=== PATIENT | female | born 1945 | race Caucasian/White ===

== ENCOUNTER 2020-06-26 14:24 | Inpatient (IN) | payer OTHER, SELFPAY ==
[~2020-06-26] VITALS: Ht 162.6 cm; Wt 65.8 kg
--- NOTE | 2020-06-26 14:25 | NUR ---
Placed in room 2 . Placed on gambling monitor, blood pressure machine and pulse oximeter. To gown for exam. Side rails up. Report given to
--- NOTE | 2020-06-26 14:30 | NUR ---
Pt bib daughter from home with c/o generalized weakness, body aches and cough since 06/16/20, pt tested positive for covid on 06/18/20. V/S stable, pt is afebrile.
[2020-06-26 14:43] VITALS: BP_SYST 113
[2020-06-26] MEDS ORDERED: DEXAMETHASONE SOD PHOSPHATE 10 MG/ML VIAL IVP ONE (14:45)
[2020-06-26] MEDS ORDERED: cefTRIAXone 1 GM in D5W 50 ML IV ONE (14:45)
[2020-06-26] MEDS ORDERED: MULT-1117 PO (15:14)
[2020-06-26] MEDS ORDERED: FER300L PO (15:14)
[2020-06-26] MEDS ORDERED: ALPR0.5T PO (15:14)
[2020-06-26] MEDS ORDERED: HYDR-4038 PO (15:14)
[2020-06-26] MEDS ORDERED: CEL250 PO (15:14)
[2020-06-26] MEDS ORDERED: INSU100V9 SQ (15:14)
[2020-06-26] MEDS ORDERED: LIP10 PO (15:14)
[2020-06-26] MEDS ORDERED: TACR1CAP2 PO (15:14)
[2020-06-26] MEDS ORDERED: ESZO2TAB22 PO (15:14)
[2020-06-26] MEDS ORDERED: MAGN400C PO (15:14)
[2020-06-26] MEDS ORDERED: PRO40 PO (15:14)
[2020-06-26] MEDS ORDERED: PRED5TAB PO (15:14)
[2020-06-26] MEDS ORDERED: METO50TA7 PO (15:14)
[2020-06-26] MEDS ORDERED: NEUTPHOSP PO (15:14)
[2020-06-26] MEDS ORDERED: DOCU-144 PO (15:14)
[2020-06-26] MEDS ORDERED: NOR10 PO (15:14)
--- NOTE | 2020-06-26 15:14 | NUR ---
Med rec completed.
--- NOTE | 2020-06-26 15:41 | NUR ---
# 22 gauge angiocath placed to R HAND. Use of asceptic technique. Opsite placed over site. Blood return noted. Flushed with 10 cc of normal saline. No evidence of infiltration noted. Patient tolerated well.
[2020-06-26] MEDS ORDERED: cefTRIAXone 1 GM VIAL ONE (15:51)
--- NOTE | 2020-06-26 16:00 | NUR ---
PT RESTING IN BED, NO S/SX OF DISTRESS AND V/S STABLE
[2020-06-26 18:15] LABS: BASOPHILS % (AUTO) 0.1 % (0.0-2.0); HEMATOCRIT 38.3 % (36-48); HEMOGLOBIN 12.7 g/dL (12.0-16.0); LYMPHOCYTES # (AUTO) 0.4 K/uL (1.0-5.5); LYMPHOCYTES % (AUTO) 8.6 % (20.5-51.5); MEAN CORPUSCULAR HEMOGLOBIN 26 pg (27-31); MEAN CORPUSCULAR HGB CONC 33 % (32-36); MEAN CORPUSCULAR VOLUME 77 fL (79.0-98.0); MONOCYTES # (AUTO) 0.2 K/uL (0.0-1.0); MONOCYTES % (AUTO) 5.4 % (1.7-9.3); NEUTROPHILS # (AUTO) 3.7 K/uL (1.8-7.7); NEUTROPHILS % (AUTO) 85.9 % (40.0-70.0); PLATELET COUNT (AUTO) 167 K/uL (130-430); RED BLOOD CELL COUNT(AUTO) 4.96 MIL/uL (4.2-6.2); WHITE BLOOD COUNT (AUTO) 4.3 K/uL (4.8-10.8)
[2020-06-26 18:27] LABS: ANION GAP 7 (5-15); CALCIUM 9.1 mg/dL (8.4-11.0); CHLORIDE 102 mmol/L (98-107); GLUCOSE 92 mg/dL (70-99); INR 1.2 (0.8-1.2); POTASSIUM 3.6 mmol/L (3.5-5.1); SODIUM SERUM 138 mmol/L (136-145); UREA NITROGEN, BLOOD 11 mg/dL (8-21)
[2020-06-26 18:30] LABS: C-REACTIVE PROTEIN QUANT 9.1 mg/dL (0-0.5)
[2020-06-26 18:42] LABS: ALANINE AMINOTRANSFERASE 44 U/L (12-78); ALBUMIN 2.7 g/dL (3.4-4.8); ASPARTATE AMINOTRANSFERASE 47 U/L (10-37); LACTATE DEHYDROGENASE 331 U/L (81-234); TOTAL BILIRUBIN 0.7 mg/dL (0.0-1.0)
--- NOTE | 2020-06-26 18:53 | NUR ---
PT UP TO BEDSIDE COMMODE, ABLE TO VOID. ACCIDENTLY RIPPED OUT IV AND CONTAMINATED URINE WITH BLOOD. BLEEDING CONTROLLED AND BANDAGED
[2020-06-26] MEDS ORDERED: NALOXONE HCL 0.4 MG/ML AMP (NARCAN) IVP PRN (19:15)
[2020-06-26] MEDS ORDERED: DOCUSATE SODIUM 100 MG CAPSULE PO PRN (19:15)
[2020-06-26] MEDS ORDERED: HYDROcodone/ACETAMIN 5-325 MG TAB (NORCO/ VICODIN) PO PRN (19:15)
--- NOTE | 2020-06-26 19:15 | NUR ---
Received report from DEA Quispe.
--- NOTE | 2020-06-26 19:40 | NUR ---
# 22 gauge angiocath placed to right forearm. Use of asceptic technique. Opsite placed over site. Blood return noted. Blood for lab drawn from site. Flushed with 10 cc of normal saline. No evidence of infiltration noted. Patient tolerated well.
[2020-06-26] MEDS ORDERED: AZITHROMYCIN 500 MG/VIAL (ZITHROMAX) IV ONE (19:50)
[2020-06-26] MEDS: DEXAMETHASONE SOD PHOSPHATE 10 MG/ML VIAL IVP SCH (20:04)
[2020-06-26] MEDS: AZITHROMYCIN 500 MG in NS 250 ML IV SCH (20:05)
--- NOTE | 2020-06-26 20:23 | NUR ---
Patient will be admitted to care of Dr. Ramos. Admitted to TELE unit. Will go to room 124B. Belongings list completed. Complete and up to date summary report printed. SBAR report to be given at bedside with opportunity for questions.
--- NOTE | 2020-06-26 20:31 | NUR ---
Call for a bed, cleaning process. Nurse will call back when room ready.
[2020-06-26] MEDS ORDERED: NAPH,MB-DB/K PH,MBDB 250 MG TAB ONE (20:47)
[2020-06-26] MEDS ORDERED: hydrALAZINE HCL 25 MG TABLET ONE (20:47)
[2020-06-26] MEDS ORDERED: METOPROLOL SUCCINATE 50 MG TAB.SR.24H (TOPROL XL) PO ONE (20:48)
[2020-06-26] MEDS ORDERED: ALPRAZolam 0.25 MG TABLET ONE (20:50)
[2020-06-26] MEDS: hydrALAZINE HCL 25 MG TABLET PO SCH (21:08)
[2020-06-26] MEDS: NAPH,MB-DB/K PH,MBDB 250 MG TAB PO SCH (21:09)
[2020-06-26] MEDS: mycophenolate mofetiL 250 MG CAPSULE PO SCH (21:09)
[2020-06-26] MEDS: ALPRAZolam 0.25 MG TABLET PO SCH (21:10)
[2020-06-26] MEDS: TACROLIMUS ANHYDROUS 1 MG CAPSULE (PROGRAF) PO SCH (21:10)
[2020-06-26] MEDS: METOPROLOL SUCCINATE 50 MG TAB.SR.24H (TOPROL XL) PO SCH (21:10)
[2020-06-26] MEDS: ENOXAPARIN SODIUM 40 MG/0.4 ML SYRINGE SUBCUT SCH (21:11)
[2020-06-26] MEDS ORDERED: INSULIN REGULAR, HUMAN 10 UNITS/0.1 ML INJ ONE (21:21)
--- NOTE | 2020-06-26 21:26 | NUR ---
BS 175- Insulin R 2 unit as order.
[2020-06-26 22:22] VITALS: BP_SYST 159
--- NOTE | 2020-06-26 22:22 | NUR ---
ADMISSION NOTE Received patient from ER via gurney. Patient admitted with diagnosis of COVID PNA. Patient is awake, alert, oriented X 4. Patient oriented to hospital room, call light, toileting, pain management and safety-teach back done. Patient informed that SUE will be HER nurse and that their room number is 124B. Personal belongings checked and Belongings List documented. Call light within reach.
--- NOTE | 2020-06-26 22:32 | NUR ---
Patient transfer to the floor by EMT.
--- NOTE | 2020-06-26 22:41 | NUR ---
ADMISSION NOTE Received patient from ER via gurney. Patient admitted with diagnosis of COVID PNA. Patient is awake, alert, oriented X 4. Patient oriented to hospital room, call light, toileting, pain management and safety-teach back done. Patient informed that SUE will be HER nurse and that their room number is 124B. Personal belongings checked and Belongings List documented. Call light within reach. Addendum: 06/26/20 at 4092 by Kwan Garcia RN NOTE TIME PLACED IN ERROR. ACTUAL TIME: @0351
--- NOTE | 2020-06-26 23:47 | NUR ---
CONSULT REASON FOR CONSULT: COVID PNEIMONIA PERSON I SPOKE WITH: NANCY CONSULTING PHYSICIAN: DR. HOLLY [facility] SOLUTION ARCHITECT PHONE NUMBER: [phone] ORDERING PHYSICIAN: DR. PABLO
--- NOTE | 2020-06-26 23:49 | NUR ---
CONSULT REASON FOR CONSULT: COVID PNEUMONIA DR. GREENE CAME AND SAW THE PATIENT. DOCTOR PUT IN CONSULTATION NOTES IN.
[2020-06-27] MEDS: INSULIN REGULAR, HUMAN 100 UNITS/ML, 10 ML VIAL (humuLIN R) SUBCUT PRN ×4 (06:44→21:55)
--- NOTE | 2020-06-27 06:45 | NUR ---
CLOSING NOTE PATIENT AWAKE IN BED, RESPIRATIONS EVEN AND UNLABORED ON OXYGEN 2LPM VIA NC. PATIENT BRP AND AMBULATES STEADILY. ACCUCHECK 207, 4 UNITS REGULAR INSULIN COVERAGE GIVEN. PATIENT TOLERATED. IV SITE PATENT AND INTACT TO RIGHT FOREARM 22GAUGE, FLUSHING WELL WITH NO SIGNS OF INFILTRATION NOTED. ISOLATION PRECAUTIONS IN PLACE. SAFETY MEASURES MAINTAINED. BED LOCKED IN LOW POSITION WITH CALL LIGHT IN REACH. PATIENT STABLE AT THIS TIME. WILL CONTINUE TO MONITOR UNTIL ENDORSED TO AM NURSE.
--- NOTE | 2020-06-27 07:30 | NUR ---
OPENING NOTES: RECEIVED PATIENT FROM VEHICLE PAINTER NURSE. PATIENT IS AWAKE AND ALERT x4 LAYING DOWN IN BED. PATIENT IS TOLERATING OXYGEN ON 2 L NASAL CANNULA WITH NO SIGNS OF DISTRESS OR SHORTNESS OF BREATH NOTED. IV SITE IS PATENT WITH NO SIGNS OF INFILTRATION NOTED. PATIENT IN STABLE CONDITION. SAFETY, FALL, ASPIRATION, CONTACT AND DROPLET PRECAUTIONS ARE IN PLACE. BED LOCKED IN LOWEST POSITION WITH CALL LIGHT IN REACH. WILL CONTINUE TO MONITOR PATIENT FOR ANY CHANGES.
[2020-06-27 08:03] LABS: BASOPHILS % (AUTO) 0.1 % (0.0-2.0); HEMATOCRIT 40.3 % (36-48); HEMOGLOBIN 13.1 g/dL (12.0-16.0); LYMPHOCYTES # (AUTO) 0.4 K/uL (1.0-5.5); LYMPHOCYTES % (AUTO) 17.8 % (20.5-51.5); MEAN CORPUSCULAR HEMOGLOBIN 25 pg (27-31); MEAN CORPUSCULAR HGB CONC 33 % (32-36); MEAN CORPUSCULAR VOLUME 78 fL (79.0-98.0); MONOCYTES # (AUTO) 0.2 K/uL (0.0-1.0); MONOCYTES % (AUTO) 9.9 % (1.7-9.3); NEUTROPHILS # (AUTO) 1.6 K/uL (1.8-7.7); NEUTROPHILS % (AUTO) 72.2 % (40.0-70.0); PLATELET COUNT (AUTO) 176 K/uL (130-430); RED BLOOD CELL COUNT(AUTO) 5.15 MIL/uL (4.2-6.2); RED CELL DISTRIBUTION WIDTH 14.1 % (9.0-15.0); WHITE BLOOD COUNT (AUTO) 2.2 K/uL (4.8-10.8)
[2020-06-27 08:14] LABS: ALANINE AMINOTRANSFERASE 45 U/L (12-78); ALBUMIN 2.7 g/dL (3.4-4.8); ANION GAP 10 (5-15); ASPARTATE AMINOTRANSFERASE 44 U/L (10-37); CALCIUM 9.5 mg/dL (8.4-11.0); CHLORIDE 104 mmol/L (98-107); GLUCOSE 200 mg/dL (70-99); POTASSIUM 4.3 mmol/L (3.5-5.1); SODIUM SERUM 142 mmol/L (136-145); TOTAL BILIRUBIN 0.7 mg/dL (0.0-1.0); UREA NITROGEN, BLOOD 15 mg/dL (8-21)
[2020-06-27 08:30] VITALS: BP_SYST 156
[2020-06-27] MEDS: ATORVASTATIN 10 MG TABLET PO SCH (10:06)
[2020-06-27] MEDS: mycophenolate mofetiL 250 MG CAPSULE PO SCH ×2 (10:06→21:52)
[2020-06-27] MEDS: predniSONE 5 MG TABLET PO SCH (10:06)
[2020-06-27] MEDS: amLODIPine BESYLATE 10 MG TABLET PO SCH (10:06)
[2020-06-27] MEDS: NAPH,MB-DB/K PH,MBDB 250 MG TAB PO SCH ×2 (10:06→21:52)
[2020-06-27] MEDS: hydrALAZINE HCL 25 MG TABLET PO SCH ×3 (10:06→21:52)
[2020-06-27] MEDS: TACROLIMUS ANHYDROUS 1 MG CAPSULE (PROGRAF) PO SCH ×2 (10:06→21:52)
[2020-06-27] MEDS: METOPROLOL SUCCINATE 50 MG TAB.SR.24H (TOPROL XL) PO SCH ×2 (10:07→21:52)
[2020-06-27] MEDS: ENOXAPARIN SODIUM 40 MG/0.4 ML SYRINGE SUBCUT SCH ×2 (10:07→21:00)
[2020-06-27 11:15] VITALS: BP_SYST 142
--- NOTE | 2020-06-27 11:25 | NUR ---
Nutrition Update Konrad Scale 18 noted. Pt admitted for COVID pneumonia. Diet: [facility] BMI: 24.9 kg/m2 RD to follow per nutrition care standards.
[2020-06-27 15:35] VITALS: BP_SYST 133
[2020-06-27] MEDS: AZITHROMYCIN 500 MG in NS 250 ML IV SCH (18:16)
[2020-06-27] MEDS: DEXAMETHASONE SOD PHOSPHATE 10 MG/ML VIAL IVP SCH (18:48)
--- NOTE | 2020-06-27 18:57 | NUR ---
CLOSING NOTES: PATIENT IS AWAKE AND ALERT x4 LAYING DOWN IN BED. PATIENT IS TOLERATING OXYGEN ON 2 L NASAL CANNULA WITH NO SIGNS OF DISTRESS OR SHORTNESS OF BREATH NOTED. IV SITE IS PATENT WITH NO SIGNS OF INFILTRATION NOTED. PATIENT IN STABLE CONDITION. SAFETY, FALL, ASPIRATION, CONTACT AND DROPLET PRECAUTIONS REMAINED IN PLACE THROUGHOUT THE SHIRT. BED LOCKED IN LOWEST POSITION WITH CALL LIGHT IN REACH. WILL ENDORSE PATIENT CARE TO ONCOMING DIESEL TRUCK MECHANIC NURSE.
--- NOTE | 2020-06-27 19:45 | NUR ---
OPENING NOTE RECEIVED PATIENT AOX4 AWAKE IN BED NO SIGNS OF DISTRESS NOTED. RESPIRATIONS EVEN AND UNLABORED ON OXYGEN 2LPM NC. IV SITE PATENT AND FLUSHING WELL WITH NO SIGNS OF INFILTRATION NOTED. ISOLATION PRECAUTIONS IN PLACE. SAFETY MEASURES IN PLACE WITH BED LOCKED IN LOW POSITION, CALL LIGHT IN REACH. PATIENT EDUCATED TO CALL FOR ASSISTANCE WHEN NEEDED. PATIENT VERBALIZED UNDERSTANDING. WILL CONTINUE TO MONITOR.
[2020-06-27 20:00] VITALS: BP_SYST 127
[2020-06-27] MEDS ORDERED: ALPRAZolam 0.25 MG TABLET ONE (20:14)
[2020-06-27] MEDS: ALPRAZolam 0.25 MG TABLET PO SCH (21:53)
--- NOTE | 2020-06-27 22:00 | NUR ---
PATIENT FOUND ON HER KNEES ON FLOOR BY BEDSIDE. PATIENT DENIES HITTING HER HEAD. PATIENT STATES SHE WAS GOING TO RESTROOM AND FELT DIZZY. ASSISTED PATIENT BACK TO BED. NOTED LEFT KNEE ABRASION AND ECCHYMOSIS TO LEFT GLUTEAL FOLD. PICTURES TAKEN. MD MADE AWARE. ORDERS TO INITIATE FALL PRECAUTIONS ORDERED AND TO CONTINUE TO MONITOR. ORDERS CARRIED OUT. JOINT CLEANING MACHINE OPERATOR ELY NOTIFIED. PATIENT AOX4 HOWEVER SON IN LAW AND DAUGHTER ASIM MADE AWARE.
--- NOTE | 2020-06-27 23:00 | NUR ---
RN ROUNDS PATIENT RE-EDUCATED TO CALL FOR ASSISTANCE WHEN NEEDED. PATIENT VERBALIZED UNDERSTANDING. CALL LIGHT WITHIN REACH. PULSE OX 94% ON OXYGEN 5LPM NC. BED ALARM ON.
[2020-06-28] VITALS: BP_SYST 120
--- NOTE | 2020-06-28 00:45 | NUR ---
RN ROUNDS PATIENT FOUND ATTEMPTING TO GET OUT OF BED, BED ALARM SOUNDING. PATIENT REMOVED NC. RE-EDUCATED PATIENT ON IMPORTANCE TO STAY IN BED AND TO CALL FOR ASSISTANCE WHEN NEEDED. YELLOW NON-SLIP SOCKS, YELLOW GOWN, AND FALL RISK ID BAND REMAIN ON PATIENT. CALL LIGHT IN REACH. BED ALARM ON. WILL CONTINUE TO MONITOR.
[2020-06-28] MEDS: INSULIN REGULAR, HUMAN 100 UNITS/ML, 10 ML VIAL (humuLIN R) SUBCUT PRN ×3 (06:50→16:52)
--- NOTE | 2020-06-28 07:15 | NUR ---
CLOSING NOTE BED ALARM SOUNDING, PATIENT OUT OF BED IN RESTROOM, PATIENT AMBULATED WITH WALKER, WEAK GAIT. EDUCATION REINFORCED ON NEED TO REMAIN ON BEDREST TO MINIMIZE RISK FOR FALLS AND TO KEEP OXYGEN IN PLACE. ASSISTED PATIENT BACK TO BED. BED ALARM ON, CALL LIGHT WITHIN REACH. BED LOCKED IN LOW POSITION. PATIENT STABLE AT THIS TIME, WILL MONITOR UNTIL ENDORSED TO DAY NURSE.
--- NOTE | 2020-06-28 07:30 | NUR ---
OPENING NOTES: RECEIVED PATIENT FROM TUMBLER PLATER NURSE. PATIENT IS AWAKE AND ALERT x4 LAYING DOWN IN BED. PATIENT IS TOLERATING OXYGEN ON 6 L NASAL CANNULA WITH NO SIGNS OF DISTRESS OR SHORTNESS OF BREATH NOTED. IV SITE IS PATENT WITH NO SIGNS OF INFILTRATION NOTED. PATIENT IN STABLE CONDITION. SAFETY, FALL, ASPIRATION, CONTACT AND DROPLET PRECAUTIONS ARE IN PLACE. BED LOCKED IN LOWEST POSITION WITH CALL LIGHT IN REACH. WILL CONTINUE TO MONITOR PATIENT FOR ANY CHANGES.
[2020-06-28 08:00] VITALS: BP_SYST 134
[2020-06-28] MEDS: hydrALAZINE HCL 25 MG TABLET PO SCH ×3 (10:03→21:00)
[2020-06-28] MEDS: amLODIPine BESYLATE 10 MG TABLET PO SCH (10:04)
[2020-06-28] MEDS: METOPROLOL SUCCINATE 50 MG TAB.SR.24H (TOPROL XL) PO SCH ×2 (10:04→21:00)
[2020-06-28] MEDS: mycophenolate mofetiL 250 MG CAPSULE PO SCH ×2 (10:04→21:00)
[2020-06-28] MEDS: predniSONE 5 MG TABLET PO SCH (10:04)
[2020-06-28] MEDS: TACROLIMUS ANHYDROUS 1 MG CAPSULE (PROGRAF) PO SCH ×2 (10:04→21:00)
[2020-06-28] MEDS: ATORVASTATIN 10 MG TABLET PO SCH (10:04)
[2020-06-28] MEDS: NAPH,MB-DB/K PH,MBDB 250 MG TAB PO SCH ×2 (10:04→21:00)
[2020-06-28] MEDS: ENOXAPARIN SODIUM 40 MG/0.4 ML SYRINGE SUBCUT SCH ×2 (10:05→21:00)
[2020-06-28 12:06] VITALS: BP_SYST 119
[2020-06-28 16:10] VITALS: BP_SYST 126
[2020-06-28 16:13] VITALS: BP_SYST 120
--- NOTE | 2020-06-28 18:38 | NUR ---
CLOSING NOTES: PATIENT IS AWAKE AND ALERT x4 LAYING DOWN IN BED. PATIENT IS TOLERATING OXYGEN ON 6 L NASAL CANNULA WITH NO SIGNS OF DISTRESS OR SHORTNESS OF BREATH NOTED. IV SITE IS PATENT WITH NO SIGNS OF INFILTRATION NOTED. PATIENT IN STABLE CONDITION. SAFETY, FALL, ASPIRATION, CONTACT AND DROPLET PRECAUTIONS REMAINED IN PLACE THROUGHOUT THE SHIFT. BED LOCKED IN LOWEST POSITION WITH CALL LIGHT IN REACH. WILL ENDORSE PATIENT CARE TO ONCOMING WORKFORCE MANAGER NURSE.
[2020-06-28] MEDS: AZITHROMYCIN 500 MG in NS 250 ML IV SCH (18:44)
[2020-06-28] MEDS: DEXAMETHASONE SOD PHOSPHATE 10 MG/ML VIAL IVP SCH (18:44)
--- NOTE | 2020-06-28 19:30 | NUR ---
OPENING NOTE REPORT RECEIVED FROM DAYSHIFT NURSE. PATIENT RECEIVED LYING IN BED, AWAKE, ALERT, NO S/S OF ACUTE DISTRESS NOTED. BREATHING EVEN AND UNLABORED, ON 6L OF OXYGEN. IV SITE PATENT, NO SIGNS OF INFILTRATION OR INFECTION NOTED. CALL LIGHT WITH PATIENT. BED ALARM ON. BED IS LOCKED AND AT LOWEST POSITION. WILL CONTINUE TO MONITOR.
[2020-06-28 20:00] VITALS: BP_SYST 130
[2020-06-28] MEDS: ALPRAZolam 0.25 MG TABLET PO SCH (21:00)
[2020-06-28] MEDS ORDERED: ALPRAZolam 0.25 MG TABLET ONE (21:08)
[2020-06-29] VITALS: BP_SYST 118; BP_SYST 128
[2020-06-29] MEDS: INSULIN REGULAR, HUMAN 100 UNITS/ML, 10 ML VIAL (humuLIN R) SUBCUT PRN ×4 (06:22→22:26)
--- NOTE | 2020-06-29 06:54 | NUR ---
CLOSING NOTE PATIENT IN BED, SLEEPING AT THIS TIME. NO S/S OF ACUTE DISTRESS NOTED. BREATHING IS EVEN AND UNLABORED. HOB SLIGHTLY RAISED, NASAL CANULA ATTACHED PROPERLY, ON 6L OF OXYGEN. IV SITE IS PATENT, NO SIGNS OF INFILTRATION OR INFECTION NOTED. SKIN WARM AND DRY TO TOUCH, NO S/S OF HYPOGLYCEMIA NOTED. ALL NEEDS MET THROUGHOUT SHIFT. WILL CONTINUE TO MONITOR UNTIL PATIENT CARE IS ENDORSED TO ONCOMING DAYSHIFT NURSE.
[2020-06-29 08:00] VITALS: BP_SYST 138
[2020-06-29 08:28] LABS: HEMATOCRIT 40.2 % (36-48); HEMOGLOBIN 13.2 g/dL (12.0-16.0); LYMPHOCYTES # (AUTO) 0.5 K/uL (1.0-5.5); LYMPHOCYTES % (AUTO) 10.4 % (20.5-51.5); MEAN CORPUSCULAR HEMOGLOBIN 25 pg (27-31); MEAN CORPUSCULAR HGB CONC 33 % (32-36); MEAN CORPUSCULAR VOLUME 77 fL (79.0-98.0); MONOCYTES # (AUTO) 0.4 K/uL (0.0-1.0); MONOCYTES % (AUTO) 7.3 % (1.7-9.3); NEUTROPHILS # (AUTO) 4.3 K/uL (1.8-7.7); NEUTROPHILS % (AUTO) 82.3 % (40.0-70.0); PLATELET COUNT (AUTO) 226 K/uL (130-430); RED BLOOD CELL COUNT(AUTO) 5.21 MIL/uL (4.2-6.2); RED CELL DISTRIBUTION WIDTH 14.1 % (9.0-15.0); WHITE BLOOD COUNT (AUTO) 5.2 K/uL (4.8-10.8)
[2020-06-29 08:40] LABS: ALANINE AMINOTRANSFERASE 40 U/L (12-78); ALBUMIN 2.7 g/dL (3.4-4.8); ANION GAP 13 (5-15); ASPARTATE AMINOTRANSFERASE 23 U/L (10-37); CALCIUM 9.3 mg/dL (8.4-11.0); CHLORIDE 108 mmol/L (98-107); CREATININE 0.71 mg/dL (0.55-1.30); GLUCOSE 202 mg/dL (70-99); PHOSPHORUS 3.3 mg/dL (2.7-4.5); POTASSIUM 3.4 mmol/L (3.5-5.1); SODIUM SERUM 144 mmol/L (136-145); TOTAL BILIRUBIN 0.8 mg/dL (0.0-1.0); UREA NITROGEN, BLOOD 23 mg/dL (8-21)
--- NOTE | 2020-06-29 09:28 | NUR ---
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
[2020-06-29] MEDS: METOPROLOL SUCCINATE 50 MG TAB.SR.24H (TOPROL XL) PO SCH ×2 (09:56→22:24)
[2020-06-29] MEDS: ATORVASTATIN 10 MG TABLET PO SCH (09:57)
[2020-06-29] MEDS: hydrALAZINE HCL 25 MG TABLET PO SCH ×3 (09:57→22:24)
[2020-06-29] MEDS: NAPH,MB-DB/K PH,MBDB 250 MG TAB PO SCH ×2 (09:57→22:24)
[2020-06-29] MEDS: predniSONE 5 MG TABLET PO SCH (09:58)
[2020-06-29] MEDS: amLODIPine BESYLATE 10 MG TABLET PO SCH (09:58)
[2020-06-29] MEDS: TACROLIMUS ANHYDROUS 1 MG CAPSULE (PROGRAF) PO SCH ×2 (09:58→22:24)
[2020-06-29] MEDS: mycophenolate mofetiL 250 MG CAPSULE PO SCH ×2 (09:58→22:24)
[2020-06-29] MEDS: ENOXAPARIN SODIUM 40 MG/0.4 ML SYRINGE SUBCUT SCH ×2 (10:05→22:25)
[2020-06-29 11:09] VITALS: BP_SYST 138
[2020-06-29] MEDS: DEXAMETHASONE SOD PHOSPHATE 10 MG/ML VIAL IVP SCH (11:30)
--- NOTE | 2020-06-29 13:00 | NUR ---
Note Ita HEWITT [employer] called for update on pt's status [phone]
--- NOTE | 2020-06-29 14:05 | NUR ---
CRITICAL LAB: Soumya from Laboratory called with critical lab value COVID-19 PCR results positive. Medical record number and patient name verified. Read back of result done. DEA Santana notified.
[2020-06-29 16:00] VITALS: BP_SYST 130
[2020-06-29] MEDS: AZITHROMYCIN 500 MG in NS 250 ML IV SCH (18:40)
--- NOTE | 2020-06-29 18:55 | NUR ---
NOTE DR ZAMORA ON THE FLOOR AT PT'S BEDSIDE ASSESSING PT AT THIS TIME.
[2020-06-29] MEDS ORDERED: ALPRAZolam 0.25 MG TABLET ONE (21:51)
[2020-06-29 21:57] VITALS: BP_SYST 116
[2020-06-29] MEDS: ALPRAZolam 0.25 MG TABLET PO SCH (22:24)
--- NOTE | 2020-06-29 22:26 | NUR ---
MED PASS PATIENT DUE MEDICATIONS GIVEN. ROUTINE FINGER STICK SUGAR 303. COVERED WITH 8 UNITS REGULAR INSULIN PER SLIDING SCALE ORDER. VITAL SIGNS STABLE. NO C/O OF PAIN. BED IN LOWEST LOCKED POSITION WITH ALARM ON. CALL LIGHT WITH IN REACH.
[2020-06-30] VITALS: BP_SYST 118
--- NOTE | 2020-06-30 01:00 | NUR ---
ROUNDS PATIENT RESTING IN BED. NO DISTRESS NOTED. CALL LIGHT WITH IN REACH.
--- NOTE | 2020-06-30 04:50 | NUR ---
SPECIMEN CLEAN CATCH URINE SPECIMEN SENT TO LAB FOR UA, RANDOM CREATININE AND SODIUM.
[2020-06-30] MEDS: INSULIN REGULAR, HUMAN 100 UNITS/ML, 10 ML VIAL (humuLIN R) SUBCUT PRN ×4 (05:42→20:51)
--- NOTE | 2020-06-30 06:51 | NUR ---
CLOSING NOTES NO CHANGE IN PATIENT CONDITION. PATIENT NEEDS ATTENDED.
[2020-06-30 08:00] VITALS: BP_SYST 138
[2020-06-30 08:06] LABS: BILIRUBIN,URINE NEGATIVE (NEGATIVE); BLOOD, URINE NEGATIVE (NEGATIVE); CLARITY/URINE SL CLOUDY (CLEAR); COLOR,URINE YELLOW (YELLOW); GLUCOSE,URINE NEGATIVE (NEGATIVE); KETONES,URINE NEGATIVE (NEGATIVE); LEUKOCYTE ESTERASE ,URINE NEGATIVE (NEGATIVE); NITRITE, URINE NEGATIVE (NEGATIVE); PROTEIN URINE NEGATIVE (NEGATIVE); UROBILINOGEN,URINE 0.2 (0.2-1.0)
[2020-06-30 09:19] LABS: BACTERIA,URINE RARE /HPF (None Seen); RBC,URINE 0-3 /HPF (0-3); WBC,URINE 0-3 /HPF (0-3)
[2020-06-30 09:20] LABS: URINE AMORPHOUS PHOSPHATES 2+ /HPF (None Seen)
[2020-06-30] MEDS: DEXAMETHASONE SOD PHOSPHATE 10 MG/ML VIAL IVP SCH (09:36)
[2020-06-30] MEDS: hydrALAZINE HCL 25 MG TABLET PO SCH ×3 (09:38→20:46)
[2020-06-30] MEDS: amLODIPine BESYLATE 10 MG TABLET PO SCH (09:38)
[2020-06-30] MEDS: NAPH,MB-DB/K PH,MBDB 250 MG TAB PO SCH ×2 (09:39→20:46)
[2020-06-30] MEDS: TACROLIMUS ANHYDROUS 1 MG CAPSULE (PROGRAF) PO SCH ×2 (09:39→20:46)
[2020-06-30] MEDS: ATORVASTATIN 10 MG TABLET PO SCH (09:39)
[2020-06-30] MEDS: METOPROLOL SUCCINATE 50 MG TAB.SR.24H (TOPROL XL) PO SCH ×2 (09:39→20:46)
[2020-06-30] MEDS: ENOXAPARIN SODIUM 40 MG/0.4 ML SYRINGE SUBCUT SCH (10:00)
--- NOTE | 2020-06-30 11:05 | NUR ---
NOTE DR IRWIN WAS CALLED PER PT'S REQUEST - WHY PT'S MEDICATION CELLCEPT WAS DC'D THIS AM. DR HAILE CALLED BACK AT THIS TIME AND STATED THE CELLCEPT WAS DC'D FOR THIS TIME PT HAS INFECTION (COVID) - AFTER INFECTION COMES DOWN, CELLCEPT WILL BE RENEWED.
[2020-06-30 11:40] LABS: ANION GAP 9 (5-15); CALCIUM 9.5 mg/dL (8.4-11.0); CHLORIDE 110 mmol/L (98-107); CREATININE 0.83 mg/dL (0.55-1.30); GLUCOSE 163 mg/dL (70-99); POTASSIUM 3.5 mmol/L (3.5-5.1); SODIUM SERUM 142 mmol/L (136-145); UREA NITROGEN, BLOOD 19 mg/dL (8-21)
[2020-06-30 11:46] LABS: ALANINE AMINOTRANSFERASE 47 U/L (12-78); ALBUMIN 2.9 g/dL (3.4-4.8); ASPARTATE AMINOTRANSFERASE 38 U/L (10-37); TOTAL BILIRUBIN 0.8 mg/dL (0.0-1.0)
[2020-06-30 11:54] VITALS: BP_SYST 134
[2020-06-30 16:28] VITALS: BP_SYST 123
--- NOTE | 2020-06-30 19:00 | NUR ---
Note Called pt's family and update on pt's status given. Pt was checked on q1' and PRN all shift for needs and care. Pt was maintained with safety and isolation precautions all shift. Call light within reach.
[2020-06-30] MEDS: AZITHROMYCIN 500 MG in NS 250 ML IV SCH (19:49)
[2020-06-30] MEDS ORDERED: ALPRAZolam 0.25 MG TABLET ONE (20:31)
[2020-06-30 20:44] VITALS: BP_SYST 132
[2020-06-30] MEDS: ALPRAZolam 0.25 MG TABLET PO SCH (20:46)
--- NOTE | 2020-06-30 20:46 | NUR ---
MED PASS PATIENT DUE MEDICATIONS GIVEN. VITAL SIGNS STABLE. DENIES ANY PAIN. INFORMED PATIENT CONVALESCENT PLASMA INFUSION PATIENT BLOOD TYPE NOT AVAILABLE TONIGHT PER LAB.
--- NOTE | 2020-06-30 21:30 | NUR ---
FALL PATIENT CALL LIGHT ACTIVATED BY PATIENT INFORMING STAFF SHE FELL ON THE FLOOR. PATIENT SEEN SITTING ON THE FLOOR AT BEDSIDE. PER PATIENT SHE WAS TRYING TO GET OUT OF BED TO USE BEDSIDE COMMODE AND SUDDENLY FELT WEAK. NO VISIBLE INJURY NOTED ON ASSESSMENT EXCEPT FOR MINOR SCRATCH ON THE RIGHT KNEE NO BLEEDING NOTED. PATIENT DENIES HITTING HER HEAD ON ANY SURFACE. PATIENT ASSISTED BACK TO BED. VITAL SIGNS STABLE. DENIES PAIN. PATIENT EDUCATED ON IMPORTANCE OF USING CALL LIGHT FOR ASSISTANCE. PATIENT VERBALIZES UNDERSTANDING. FALL PRECAUTION MEASURES DISCUSSED WITH PATIENT. PLACED CALL LIGHT WITH IN REACH. BED ALARM ON.
[2020-06-30 22:24] LABS: URINE SODIUM, RANDOM 109 mmol/L (40-220)
--- NOTE | 2020-06-30 22:59 | NUR ---
NOTIFICATION PATIENT FAMILY NOTIFIED OF PATIENT FALL. SPOKE WITH PATIENT DAUGHTER AISM.
--- NOTE | 2020-06-30 22:59 | NUR ---
NOTIFICATION DR. PABLO MADE AWARE OF PATIENT FALL. MONITOR PATIENT PER MD.
[2020-07-01 00:18] VITALS: BP_SYST 114
--- NOTE | 2020-07-01 00:30 | NUR ---
NOTES PATIENT RESTING IN BED. NO DISTRESS NOTED. VITAL SIGNS TABLE.
--- NOTE | 2020-07-01 01:45 | NUR ---
ROUNDS PATIENT RESTING IN BED. NO DISTRESS NOTED.
--- NOTE | 2020-07-01 02:58 | NUR ---
ROUNDS PATIENT BREATHING UNLABORED ON 6L NC. CALL LIGHT WITH IN REACH.
--- NOTE | 2020-07-01 04:16 | NUR ---
ROUNDS PATIENT RESTING IN BED. BREATHING UNLABORED. DRY COUGH NOTED.
--- NOTE | 2020-07-01 04:40 | NUR ---
OOB PATIENT ASSISTED BY STAFF FOR BEDSIDE COMMODE USE. PATIENT HD BM.
--- NOTE | 2020-07-01 07:04 | NUR ---
CLOSING NOTES PATIENT RESTING IN BED. BREATHING UNLABORED ON 6L NC. 02 SAT 97%. BED IN LOWEST LOCKED POSITION WITH ALARM ON. CALL LIGHT WITH IN REACH.
--- NOTE | 2020-07-01 07:45 | NUR ---
Opening Notes Patient is awake, alert and oriented x3-4. No resp distress noted. Breathing is even and unlabored. Pt remains on continuous oxygen at 6 LPM via NC, tolerating well at this time. IV site on right hand 22 gauge intact at this time. Flushing well, dressing clean and dry. BSC available at bedside. All needs met. Safety and fall precautions in place. Bed in lowest position, alarm on, locked. Will continue to monitor.
[2020-07-01 08:00] VITALS: BP_SYST 125
[2020-07-01 08:58] LABS: ALANINE AMINOTRANSFERASE 52 U/L (12-78); ALBUMIN 2.9 g/dL (3.4-4.8); ANION GAP 14 (5-15); ASPARTATE AMINOTRANSFERASE 29 U/L (10-37); BILIRUBIN,DIRECT 0.2 mg/dL (0.0-0.3); CALCIUM 9.3 mg/dL (8.4-11.0); CHLORIDE 109 mmol/L (98-107); CREATININE 0.61 mg/dL (0.55-1.30); GLUCOSE 151 mg/dL (70-99); POTASSIUM 3.6 mmol/L (3.5-5.1); SODIUM SERUM 143 mmol/L (136-145); TOTAL BILIRUBIN 0.8 mg/dL (0.0-1.0); UREA NITROGEN, BLOOD 21 mg/dL (8-21)
[2020-07-01] MEDS: amLODIPine BESYLATE 10 MG TABLET PO SCH (09:00)
[2020-07-01] MEDS: DEXAMETHASONE SOD PHOSPHATE 10 MG/ML VIAL IVP SCH (09:00)
[2020-07-01] MEDS: hydrALAZINE HCL 25 MG TABLET PO SCH ×3 (09:00→21:14)
[2020-07-01] MEDS: NAPH,MB-DB/K PH,MBDB 250 MG TAB PO SCH ×2 (09:00→21:13)
[2020-07-01] MEDS: TACROLIMUS ANHYDROUS 1 MG CAPSULE (PROGRAF) PO SCH ×2 (09:00→21:14)
[2020-07-01] MEDS: ENOXAPARIN SODIUM 40 MG/0.4 ML SYRINGE SUBCUT SCH (09:00)
[2020-07-01] MEDS: ATORVASTATIN 10 MG TABLET PO SCH (09:00)
[2020-07-01] MEDS: METOPROLOL SUCCINATE 50 MG TAB.SR.24H (TOPROL XL) PO SCH ×2 (09:00→21:13)
[2020-07-01] MEDS: INSULIN REGULAR, HUMAN 100 UNITS/ML, 10 ML VIAL (humuLIN R) SUBCUT PRN ×3 (11:30→21:21)
--- NOTE | 2020-07-01 11:30 | NUR ---
Blood Sugar Patients BS was noted at 215 mg/dL. Per sliding scale, administered 4 units of REGULAR insulin, tolerated well. Will continue to monitor.
[2020-07-01 11:33] VITALS: BP_SYST 111
[2020-07-01 12:25] LABS: C-REACTIVE PROTEIN QUANT 1.4 mg/dL (0-0.5)
[2020-07-01 15:22] VITALS: BP_SYST 114
[2020-07-01 16:00] VITALS: BP_SYST 125
--- NOTE | 2020-07-01 17:30 | NUR ---
Blood Sugar Patients BS was noted at 254 mg/dL. Per sliding scale, administered 6 units of regular insulin, tolerated well. Will continue to monitor.
[2020-07-01] MEDS ORDERED: guaiFENesin/DEXTROMETHORPHAN 10 ML UDC PO PRN (18:45)
--- NOTE | 2020-07-01 19:25 | NUR ---
Dietitian Recommendations * [facility] w/ Glucersee TID (ONS provides 660 kcal/day, 30 gm protein/day) * Encourage increase PO intakes LP, RD Please refer to Nutrition Assessment for details. Addendum: 07/01/20 at [address] Amended: Links added.
--- NOTE | 2020-07-01 19:45 | NUR ---
ROUNDS PATIENT RESTING COMFORTABLY IN BED, NOT IN DISTRESS, VITALS STABLE. ASSESSMENT DONE AND DOCUEMNTED. SEE FLOWSHEET. NEEDS ATTENDED TO. SAFETY AND FALL MEASURES IN PLACED. BED ALARM ON. CALL LIGHT PLACED WITHIN REACH.
[2020-07-01 20:00] VITALS: BP_SYST 122
[2020-07-01] MEDS: ALPRAZolam 0.25 MG TABLET PO SCH (21:00)
[2020-07-02] VITALS: BP_SYST 119
[2020-07-02] MEDS: INSULIN REGULAR, HUMAN 100 UNITS/ML, 10 ML VIAL (humuLIN R) SUBCUT PRN ×4 (06:01→20:24)
--- NOTE | 2020-07-02 06:55 | NUR ---
CLOSING NOTES PATIENT AWAKE, NO COMPLAINTS AT THIS TIME, ALL NEEDS ATTENDED TO. SAFETY MEASURES MAINTAINED. CALL LIGHT PLACED WITHIN REACH.
[2020-07-02 08:00] VITALS: BP_SYST 110
--- NOTE | 2020-07-02 08:30 | NUR ---
Opening Notes Patient is awake, alert and oriented x4. No resp distress noted. Breathing is even and unlabored. Pt remains on continuous oxygen at 6 LPM via NC, tolerating well at this time. Obtained new orders from Dr. Valentine to titrate pts oxygen down. Titrated oxygen down to 5 LPM, saturating at 91%. Continued to decrease to 4 LPM, saturated at 86%. Will keep oxygen at [address] Ramos, aware. IV site on right hand 22 gauge intact at this time. Flushing well, dressing clean and dry. BSC available at bedside. All needs met. Safety and fall precautions in place. Bed in lowest position, alarm on, locked. Will continue to monitor.
[2020-07-02] MEDS: TACROLIMUS ANHYDROUS 1 MG CAPSULE (PROGRAF) PO SCH ×2 (09:00→20:24)
[2020-07-02] MEDS: hydrALAZINE HCL 25 MG TABLET PO SCH ×3 (09:00→20:24)
[2020-07-02] MEDS: DEXAMETHASONE SOD PHOSPHATE 10 MG/ML VIAL IVP SCH (09:00)
[2020-07-02] MEDS: amLODIPine BESYLATE 10 MG TABLET PO SCH (09:00)
[2020-07-02] MEDS: ENOXAPARIN SODIUM 40 MG/0.4 ML SYRINGE SUBCUT SCH (09:00)
[2020-07-02] MEDS: METOPROLOL SUCCINATE 50 MG TAB.SR.24H (TOPROL XL) PO SCH ×2 (09:00→20:24)
[2020-07-02] MEDS: ATORVASTATIN 10 MG TABLET PO SCH (09:00)
[2020-07-02] MEDS: NAPH,MB-DB/K PH,MBDB 250 MG TAB PO SCH ×2 (09:00→20:24)
[2020-07-02 09:42] LABS: ALBUMIN 2.8 g/dL (3.4-4.8); BILIRUBIN,DIRECT 0.2 mg/dL (0.0-0.3); TOTAL BILIRUBIN 0.9 mg/dL (0.0-1.0)
--- NOTE | 2020-07-02 11:30 | NUR ---
Blood Sugar Patients BS was noted at 237 mg/dL. Per sliding scale, administered 4 units of REGULAR insulin, tolerated well. Will continue to monitor.
[2020-07-02 12:00] VITALS: BP_SYST 102
[2020-07-02 12:20] VITALS: BP_SYST 102
[2020-07-02 16:00] VITALS: BP_SYST 109
--- NOTE | 2020-07-02 16:45 | NUR ---
ARTURO with daughter, Breanne and son in law
--- NOTE | 2020-07-02 17:30 | NUR ---
Blood Sugar Patients BS was noted at 294 mg/dL. Per sliding scale, administered 6 units of REGULAR insulin, tolerated well. Will continue to monitor.
[2020-07-02 20:00] VITALS: BP_SYST 106
[2020-07-02] MEDS: ALPRAZolam 0.25 MG TABLET PO SCH (20:24)
[2020-07-03] VITALS: BP_SYST 126
[2020-07-03] MEDS: INSULIN REGULAR, HUMAN 100 UNITS/ML, 10 ML VIAL (humuLIN R) SUBCUT PRN ×4 (07:05→22:10)
[2020-07-03 07:55] LABS: ALANINE AMINOTRANSFERASE 46 U/L (12-78); ALBUMIN 3.1 g/dL (3.4-4.8); ANION GAP 8 (5-15); ASPARTATE AMINOTRANSFERASE 26 U/L (10-37); BILIRUBIN,DIRECT 0.4 mg/dL (0.0-0.3); CALCIUM 8.9 mg/dL (8.4-11.0); CHLORIDE 109 mmol/L (98-107); CREATININE 0.66 mg/dL (0.55-1.30); GLUCOSE 198 mg/dL (70-99); POTASSIUM 4.1 mmol/L (3.5-5.1); SODIUM SERUM 137 mmol/L (136-145); UREA NITROGEN, BLOOD 23 mg/dL (8-21)
[2020-07-03 08:00] VITALS: BP_SYST 111
[2020-07-03] MEDS: amLODIPine BESYLATE 10 MG TABLET PO SCH (09:00)
[2020-07-03] MEDS: hydrALAZINE HCL 25 MG TABLET PO SCH ×3 (09:00→21:40)
[2020-07-03] MEDS: ENOXAPARIN SODIUM 40 MG/0.4 ML SYRINGE SUBCUT SCH (09:00)
[2020-07-03] MEDS: NAPH,MB-DB/K PH,MBDB 250 MG TAB PO SCH ×2 (09:00→21:40)
[2020-07-03] MEDS: METOPROLOL SUCCINATE 50 MG TAB.SR.24H (TOPROL XL) PO SCH ×3 (09:00→21:40)
[2020-07-03] MEDS: TACROLIMUS ANHYDROUS 1 MG CAPSULE (PROGRAF) PO SCH ×2 (09:00→21:40)
[2020-07-03] MEDS: ATORVASTATIN 10 MG TABLET PO SCH (09:00)
[2020-07-03] MEDS: DEXAMETHASONE SOD PHOSPHATE 10 MG/ML VIAL IVP SCH (09:00)
--- NOTE | 2020-07-03 09:30 | NUR ---
Titrated patients oxygen to 4 LPM via NC, saturating at 90%-94%. No resp distress noted. Pt denies any SOB. Will continue to monitor throughout shift.
[2020-07-03 12:00] VITALS: BP_SYST 113
[2020-07-03 13:19] VITALS: BP_SYST 117
[2020-07-03] MEDS ORDERED: ACETAMINOPHEN 325 MG TABLET ONE (14:59)
[2020-07-03] MEDS ORDERED: ACETAMINOPHEN 325 MG TABLET PO PRN (15:00)
--- NOTE | 2020-07-03 15:30 | NUR ---
Tylenol 650 mg x back pain Patient is c/o back pain, 12/03. Obtained new orders for Dr. Ramos to administer Tylenol 650 mg, tolerated well. Will continue to monitor.
[2020-07-03 16:00] VITALS: BP_SYST 107
[2020-07-03 20:00] VITALS: BP_SYST 127
[2020-07-03] MEDS: ALPRAZolam 0.25 MG TABLET PO SCH (22:10)
[2020-07-03] MEDS ORDERED: ALPRAZolam 0.25 MG TABLET ONE (23:41)
[2020-07-04] MEDS: INSULIN REGULAR, HUMAN 100 UNITS/ML, 10 ML VIAL (humuLIN R) SUBCUT PRN ×4 (06:20→21:00)
--- NOTE | 2020-07-04 07:49 | NUR ---
OPENING NOTE Patient resting in the bed. No acute distress. On O2 4L/min via NC. Skin warm and dry to touch. SL intact to right wrist and right hand, no redness, no swelling, patent. On isolation. Safety measure maintained. Call light within reached. Bed locked in low position, side rails up, bed alarm on. Will continue to monitor.
[2020-07-04 07:50] VITALS: BP_SYST 110
[2020-07-04 08:34] LABS: ALANINE AMINOTRANSFERASE 55 U/L (12-78); ALBUMIN 2.9 g/dL (3.4-4.8); ANION GAP 12 (5-15); ASPARTATE AMINOTRANSFERASE 21 U/L (10-37); BILIRUBIN,DIRECT 0.2 mg/dL (0.0-0.3); CALCIUM 9.3 mg/dL (8.4-11.0); CHLORIDE 108 mmol/L (98-107); CREATININE 0.78 mg/dL (0.55-1.30); GLUCOSE 224 mg/dL (70-99); POTASSIUM 4.1 mmol/L (3.5-5.1); SODIUM SERUM 140 mmol/L (136-145); UREA NITROGEN, BLOOD 24 mg/dL (8-21)
--- NOTE | 2020-07-04 09:36 | NUR ---
SEEN AND EXAMINED BY LEVI BRIGHT.
--- NOTE | 2020-07-04 10:45 | NUR ---
SEEN AND EXAMINED BY SALINAS CALZADA.
[2020-07-04] MEDS: DEXAMETHASONE SOD PHOSPHATE 10 MG/ML VIAL IVP SCH (10:52)
[2020-07-04] MEDS: NAPH,MB-DB/K PH,MBDB 250 MG TAB PO SCH ×2 (10:53→20:30)
[2020-07-04] MEDS: amLODIPine BESYLATE 10 MG TABLET PO SCH (10:53)
[2020-07-04] MEDS: METOPROLOL SUCCINATE 50 MG TAB.SR.24H (TOPROL XL) PO SCH (10:54)
[2020-07-04] MEDS: ATORVASTATIN 10 MG TABLET PO SCH (10:54)
[2020-07-04] MEDS: hydrALAZINE HCL 25 MG TABLET PO SCH ×3 (10:54→20:30)
[2020-07-04] MEDS: TACROLIMUS ANHYDROUS 1 MG CAPSULE (PROGRAF) PO SCH ×2 (10:54→20:30)
[2020-07-04] MEDS: ENOXAPARIN SODIUM 40 MG/0.4 ML SYRINGE SUBCUT SCH (10:56)
[2020-07-04 12:00] VITALS: BP_SYST 116
[2020-07-04 16:02] VITALS: BP_SYST 107
--- NOTE | 2020-07-04 18:42 | NUR ---
CLOSING NOTE Patient resting in the bed. No acute distress. Continue on O2 4L/min via NC. Skin warm and dry to touch. SL intact to right wrist and right hand, no redness, no swelling, patent. Isolation maintained. All needs met. Safety measure maintained. Call light within reached. Bed locked in low position, side rails up, bed alarm on. Will endorse to night nurse.
[2020-07-04 20:00] VITALS: BP_SYST 106
[2020-07-04] MEDS: ALPRAZolam 0.25 MG TABLET PO SCH (20:30)
[2020-07-04] MEDS ORDERED: ALPRAZolam 0.25 MG TABLET ONE (20:32)
[2020-07-05] VITALS: BP_SYST 111
[2020-07-05] MEDS: INSULIN REGULAR, HUMAN 100 UNITS/ML, 10 ML VIAL (humuLIN R) SUBCUT PRN ×4 (06:55→22:15)
[2020-07-05 07:50] VITALS: BP_SYST 115
[2020-07-05 08:07] LABS: ALANINE AMINOTRANSFERASE 44 U/L (12-78); ANION GAP 13 (5-15); ASPARTATE AMINOTRANSFERASE 14 U/L (10-37); CALCIUM 8.6 mg/dL (8.4-11.0); CHLORIDE 108 mmol/L (98-107); CREATININE 1.16 mg/dL (0.55-1.30); GLUCOSE 236 mg/dL (70-99); SODIUM SERUM 141 mmol/L (136-145); TOTAL BILIRUBIN 1.6 mg/dL (0.0-1.0); UREA NITROGEN, BLOOD 27 mg/dL (8-21)
--- NOTE | 2020-07-05 09:12 | NUR ---
SEEN AND EXAMINED BY SALINAS CALZADA.
[2020-07-05] MEDS: DEXAMETHASONE SOD PHOSPHATE 10 MG/ML VIAL IVP SCH (10:15)
[2020-07-05] MEDS: hydrALAZINE HCL 25 MG TABLET PO SCH ×3 (10:15→21:00)
[2020-07-05] MEDS: NAPH,MB-DB/K PH,MBDB 250 MG TAB PO SCH ×2 (10:15→21:54)
[2020-07-05] MEDS: TACROLIMUS ANHYDROUS 1 MG CAPSULE (PROGRAF) PO SCH ×2 (10:16→21:54)
[2020-07-05] MEDS: ATORVASTATIN 10 MG TABLET PO SCH (10:16)
[2020-07-05] MEDS: METOPROLOL SUCCINATE 50 MG TAB.SR.24H (TOPROL XL) PO SCH ×2 (10:16→21:00)
[2020-07-05] MEDS: amLODIPine BESYLATE 10 MG TABLET PO SCH (10:16)
[2020-07-05] MEDS: ENOXAPARIN SODIUM 40 MG/0.4 ML SYRINGE SUBCUT SCH (10:31)
--- NOTE | 2020-07-05 11:58 | NUR ---
SS notes PROJECT ACCOUNT MANAGER received d/c planning for HCP, Amna. Dr. Ramso ordered Home oxygen. Amna [phone] informed PROJECT ACCOUNT MANAGER she will pull the order off of [employer] and the company she uses [employer] is overwhelmed. This is her 16th oxygen request of the day. Amna has a meeting with Dr. Ramos and will share info. with him.
[2020-07-05 12:00] VITALS: BP_SYST 107
[2020-07-05 15:59] VITALS: BP_SYST 104
--- NOTE | 2020-07-05 18:35 | NUR ---
CLOSING NOTE Patient resting in the bed. No acute distress. Continue on O2 4L/min via NC. SL intact to right wrist and right hand, no redness, no swelling, patent. Isolation maintained. All needs met. Safety measure maintained. Call light within reached. Bed locked in low position, side rails up, bed alarm on. Will endorse to night nurse.
[2020-07-05 21:46] VITALS: BP_SYST 116
[2020-07-05] MEDS ORDERED: ALPRAZolam 0.25 MG TABLET ONE (22:01)
[2020-07-05] MEDS: ALPRAZolam 0.25 MG TABLET PO SCH (22:12)
--- NOTE | 2020-07-06 | NUR ---
sleeping, no sob, not distress, stable, call light in reach.bed alarm o n.
--- NOTE | 2020-07-06 03:30 | NUR ---
pt wakes up and use bsc commode. standby assist. back to bed, steady. pt tolerate well. needs attended.
--- NOTE | 2020-07-06 04:58 | NUR ---
INITIAL NOTES: pt is in bed, resting, no sign of pain and distress. on o2 via nc.iv lock to right forearm and right hand. call light in reach, safety precaution in place. call light in reach,bed alarm on. donato perez. will monitor the whole shift. Addendum: 07/06/20 at 0502 by Lacho Krishnan RN initial notes time [id number]
[2020-07-06] MEDS: INSULIN REGULAR, HUMAN 100 UNITS/ML, 10 ML VIAL (humuLIN R) SUBCUT PRN ×2 (06:27→12:19)
--- NOTE | 2020-07-06 07:33 | NUR ---
CLOSING: PT IS AWAKE,ALERT, SITTING IN BED, ASK PT TO DO I.S. . NO DISTRESS, STABLE THE WHOLE SHIFT. IV LOCK INTACT AND PATENT. SAFETY PRECAUTION IN PLACE. BED ALARM ON. NEEDS ATTENDED THE WHOLE SHIFT. SBAR REPORTING GIVEN TO AM RN.
[2020-07-06 08:32] VITALS: BP_SYST 99
[2020-07-06] MEDS: DEXAMETHASONE SOD PHOSPHATE 10 MG/ML VIAL IVP SCH (08:33)
[2020-07-06] MEDS: TACROLIMUS ANHYDROUS 1 MG CAPSULE (PROGRAF) PO SCH (08:33)
[2020-07-06] MEDS: METOPROLOL SUCCINATE 50 MG TAB.SR.24H (TOPROL XL) PO SCH (08:34)
[2020-07-06] MEDS: NAPH,MB-DB/K PH,MBDB 250 MG TAB PO SCH (08:34)
[2020-07-06] MEDS: ATORVASTATIN 10 MG TABLET PO SCH (08:34)
[2020-07-06] MEDS: amLODIPine BESYLATE 10 MG TABLET PO SCH (08:35)
[2020-07-06] MEDS: hydrALAZINE HCL 25 MG TABLET PO SCH ×2 (08:35→14:41)
[2020-07-06] MEDS: ENOXAPARIN SODIUM 40 MG/0.4 ML SYRINGE SUBCUT SCH (08:36)
[2020-07-06 10:38] VITALS: BP_SYST 99
[2020-07-06 11:41] VITALS: BP_SYST 104
--- NOTE | 2020-07-06 13:35 | NUR ---
RIAZ NIELSON: RIAZ NUÑEZ. SPOKE WITH EMILIA. INFORMED NURSE MASOUD.
--- NOTE | 2020-07-06 13:49 | NUR ---
Mobility Able to get out of bed to bedside commode with steady gait no dizziness
[2020-07-06 14:05] VITALS: BP_SYST 102
[2020-07-06] MEDS ORDERED: DEXA6TAB5 PO (15:04)
[2020-07-06] MEDS ORDERED: APIX2.5T PO (15:04)
--- NOTE | 2020-07-06 15:54 | NUR ---
Left a voicemail message to Amna Dee regarding home jinny for medication reconciliation, PT evaluation and treatment follow up. Addendum: 07/06/20 at 1601 by Tammie Carrillo RN Spoke to Amna Dee regarding home health arrangement ,ok to discharge today and she will arrange it.
[2020-07-06 16:41] VITALS: BP_SYST 110
--- NOTE | 2020-07-06 16:50 | NUR ---
D/C Patient Patient given medication reconciliation form and D/C instructions. Exit Care provided. Patient verbalized understanding. MD discussed with patient the results and treatment provided. Ambulatory with assisst for discharge to home. Patient in stable condition, ID band removed. IV catheter removed, intact and dressing applied, no active bleeding. ERx of DEXAMETHASONE TABLET and apixaban given available for sheepskin pickler in [facility] . All belongings sent with patient including home medication..
== END 2020-07-06 17:00 | disposition home or self-care (01) | DRG 871 ==
LOC: SED 14:24 → STU 18:46
PROVIDERS: ADMIT Internal Medicine Hospice and Palliative Medicine; ATTEND Internal Medicine Hospice and Palliative Medicine
PROC: XW13325 Transfusion of Convalescent Plasma (Nonautologous) into Peripheral Vein, Percutaneous Approach, New Technology Group 5 (ICD-10-PCS; principal; 2020-07-05)
PROC: XW033E5 Introduction of Remdesivir Anti-infective into Peripheral Vein, Percutaneous Approach, New Technology Group 5 (ICD-10-PCS; 2020-07-05)
DX: A41.9 Sepsis, unspecified organism (principal); U07.1 COVID-19; J96.01 Acute respiratory failure with hypoxia; J12.82 Pneumonia due to coronavirus disease 2019; N18.6 End stage renal disease; J44.1 Chronic obstructive pulmonary disease with (acute) exacerbation; J44.0 Chronic obstructive pulmonary disease with (acute) lower respiratory infection; I12.0 Hypertensive chronic kidney disease with stage 5 chronic kidney disease or end stage renal disease; D84.9 Immunodeficiency, unspecified; J20.9 Acute bronchitis, unspecified; E11.22 Type 2 diabetes mellitus with diabetic chronic kidney disease; Z94.0 Kidney transplant status; Z79.01 Long term (current) use of anticoagulants; Z91.041 Radiographic dye allergy status; Z88.8 Allergy status to other drugs, medicaments and biological substances; Z79.899 Other long term (current) drug therapy; Z90.49 Acquired absence of other specified parts of digestive tract
CPT/HCPCS: 36415; 36600; 71045; 76770; 80048; 80053; 80076; 81000-TC; 82550-TC; 82570-TC; 82728; 82803-TC; 82962; 83605; 83615-TC; 83735-TC; 83880; 84100-TC; 84302-TC; 84484; 85025; 85379; 85384-TC; 85610-TC; 85730-TC; 86140; 86886; 86900; 86901; 87040-TC; 87086; 93005; 94760; 96365; 96375; 99291; G0378; J0456; J0696; J1100; J1650; J1815; J7040; J7050; J7060; J7507; J7512; J7517; P9017; U0003